=== PATIENT | male | born 1955 | race Hispanic/Latino ===

== ENCOUNTER → 2017-08-09 | Outpatient (CLI) | payer OTHER | END | disposition home or self-care (01) | LOC: SHCH 11:05 | PROVIDERS: ATTEND Internal Medicine Cardiovascular Disease | DX: I10 Essential (primary) hypertension (principal); R06.02 Shortness of breath; R07.9 Chest pain, unspecified | CPT/HCPCS: 93306 ==

== ENCOUNTER → 2017-08-30 | Outpatient (CLI) | payer OTHER | END | disposition home or self-care (01) | LOC: SHCH 13:59 | PROVIDERS: ATTEND Internal Medicine Cardiovascular Disease | DX: I87.2 Venous insufficiency (chronic) (peripheral) (principal); K21.9 Gastro-esophageal reflux disease without esophagitis | CPT/HCPCS: 93970 ==

== ENCOUNTER → 2017-10-21 | Outpatient (CLI) | payer OTHER | END | disposition home or self-care (01) | LOC: SHCH 12:54 | PROVIDERS: ATTEND Internal Medicine Cardiovascular Disease | DX: Z09 Encounter for follow-up examination after completed treatment for conditions other than malignant neoplasm (principal) | CPT/HCPCS: 93971 ==

== ENCOUNTER → 2018-11-21 | Outpatient (CLI) | payer OTHER | END | disposition home or self-care (01) | LOC: RAH 07:31 | PROVIDERS: ATTEND Family Medicine | DX: K76.0 Fatty (change of) liver, not elsewhere classified (principal); R16.0 Hepatomegaly, not elsewhere classified | CPT/HCPCS: 76700 ==

== ENCOUNTER → 2022-04-13 | Outpatient (CLI) | payer OTHER ==
[~2022-04-13] MED LIST: REGADENOSON 0.4 MG/5 ML PF SYG IVP SCH
== END | disposition home or self-care (01) ==
LOC: SHCH 07:39
PROVIDERS: ATTEND Internal Medicine Cardiovascular Disease
DX: I25.9 Chronic ischemic heart disease, unspecified (principal); R94.39 Abnormal result of other cardiovascular function study; R94.31 Abnormal electrocardiogram [ECG] [EKG]; R06.09 Other forms of dyspnea; R07.9 Chest pain, unspecified
CPT/HCPCS: 78452; 96374; 93017; J2785; A9500 ×2

== ENCOUNTER 2024-01-15 06:02 | Day surgery (SDC) | payer OTHER ==
[2024-01-13 09:05] VITALS: BP 159/78; PULSE 47; RESP 16; TEMP 97.2
[2024-01-13 09:20] LABS: BASOPHILS # (AUTO) 0.03 K/uL (0.00-0.20); BASOPHILS % (AUTO) 0.4 % (0.0-5.0); EOSINOPHILS # (AUTO) 0.16 K/uL (0.00-0.70); EOSINOPHILS % (AUTO) 2.1 % (0.0-8.0); HEMATOCRIT 38.3 % (42-54); IMMATURE GRANULOCYTE ABSOLUTE 0.02 K/uL (0-1); LYMPHOCYTES # (AUTO) 1.8 K/uL (1.0-4.8); LYMPHOCYTES % (AUTO) 22.9 % (21.0-51.0); MEAN CORPUSCULAR HEMOGLOBIN 27.4 pg (27.0-33.0); MEAN CORPUSCULAR HGB CONC 31.6 g/dL (32.0-36.0); MEAN CORPUSCULAR VOLUME 86.8 fL (79-99); MONOCYTES # (AUTO) 0.6 K/uL (0.1-1.0); MONOCYTES % (AUTO) 7.3 % (3.0-13.0); NEUTROPHILS # (AUTO) 5.2 K/uL (1.8-7.7); PLATELET COUNT (AUTO) 179 K/uL (130-400); RED BLOOD CELL COUNT(AUTO) 4.41 MIL/uL (4.50-6.20); RED CELL DISTRIBUTION WIDTH 15.9 % (11.0-15.5); WHITE BLOOD COUNT (AUTO) 7.7 K/uL (4.8-10.8)
[2024-01-13 09:31] LABS: CREATININE 1.1 mg/dL (0.5-1.3); POTASSIUM 4.5 mmol/L (3.5-5.1)
[2024-01-13 09:33] LABS: INR 0.99 (0.85-1.15); PROTHROMBIN TIME 10.7 SEC (9.6-11.6)
[2024-01-13 09:35] LABS: PARTIAL THROMBOPLASTIN TIME 31.2 SEC (26.3-35.5)
[2024-01-15] VITALS (12 sets, daily range): BP systolic 119–198; BP diastolic 46–89; PULSE 47–60; RESP 7–17; TEMP 97–97.8
[~2024-01-15] VITALS: Ht 162.6 cm; Wt 119.7 kg
[~2024-01-15 06:02] MED LIST changes: +ACET-2113 PO; +AEC81 PO; +ALPR1TAB7 PO; +AZEL205.2 NS; +CETI10TA57 PO; +CLOP75TA32 PO; +DICL50TA9 PO; +FE F1CAP33 PO; +FLOVENT INHALER PUFF; +FLUT16H NASAL; +GABA-1405 PO; +ISOS30TA92 PO; +LEVO75TA10 PO; +LOSA1TAB42 PO; +METO50TA18 PO; +MIRA50TA PO; +MONT-39 PO; +PANT40TA54 PO; +POTA-364 PO; -REGADENOSON 0.4 MG/5 ML PF SYG IVP SCH; +ROSU20TA73 PO
[2024-01-15] MEDS: 0.9%NACL 1000ML 1,000 ML IV ONE (06:35)
[2024-01-15] MEDS ORDERED: IOHEXOL 350 MG/ML 100ML INFUS..BTL IV ONE (07:16)
[2024-01-15] MEDS ORDERED: LIDOCAINE HCL 400MG/20ML VIAL ONE (07:16)
[2024-01-15] MEDS ORDERED: BIVALIRUDIN 250 MG/VIAL IV ONE (07:16)
[2024-01-15] MEDS ORDERED: NITROGLYCERIN 50MG VIAL ONE (07:17)
[2024-01-15] MEDS ORDERED: HEParin-NS 1,000 UNIT/500 ML 1,000 ML IV ONE (07:17)
[2024-01-15] MEDS ORDERED: HEParin 10,000 UNIT/10ML (1,000 UNIT/ML) VIAL ONE (07:17)
[2024-01-15] MEDS ORDERED: MIDAZOLAM HCL 1 MG/ML 2ML VIAL ONE (07:31)
[2024-01-15] MEDS ORDERED: FENTanyl CITRate PF 50 MCG/1 ML 2ML VIAL ONE (07:31)
[2024-01-15] MEDS ORDERED: ATROPINE 1MG SYG IVP ONE (07:50)
[2024-01-15] MEDS: 0.9%NACL 1000ML 1,000 ML IV SCH (08:30)
[2024-01-15] MEDS ORDERED: DEXTROSE 50%-WATER 50 ML DISP.SYRIN IV PRN (08:30)
[2024-01-15] MEDS ORDERED: GLUCAGON 1MG KIT 1 MG ML IM PRN (08:30)
[2024-01-15] MEDS ORDERED: NITROGLYCERIN 0.4 MG SL TAB SL PRN (08:30)
[2024-01-15] MEDS ORDERED: hydrALAZine 20MG/ML VIAL IV PRN (08:30)
[2024-01-15] MEDS ORDERED: INSULIN humuLIN R 100 UNIT/ML 3ML SQ SCH (11:30)
== END 2024-01-15 12:30 | disposition home or self-care (01) ==
LOC: DAH 06:02
PROVIDERS: ATTEND Internal Medicine Cardiovascular Disease
DX: I25.42 Coronary artery dissection (principal); I25.10 Atherosclerotic heart disease of native coronary artery without angina pectoris; K21.9 Gastro-esophageal reflux disease without esophagitis; E03.9 Hypothyroidism, unspecified; I11.9 Hypertensive heart disease without heart failure; E11.40 Type 2 diabetes mellitus with diabetic neuropathy, unspecified; I49.49 Other premature depolarization; R94.39 Abnormal result of other cardiovascular function study; E66.01 Morbid (severe) obesity due to excess calories; Z96.652 Presence of left artificial knee joint; Z82.49 Family history of ischemic heart disease and other diseases of the circulatory system; Z86.73 Personal history of transient ischemic attack (TIA), and cerebral infarction without residual deficits; Z68.41 Body mass index [BMI] 40.0-44.9, adult; Z79.82 Long term (current) use of aspirin; Z79.01 Long term (current) use of anticoagulants; Z79.899 Other long term (current) drug therapy
CPT/HCPCS: 80048; 85025; 85610; 85730; 36415; 71045; 93005; 93458; C1894 ×2; C1760; J3010; J3490 ×2; J7030; J2250; J1644; Q9967; A4215; A4222; A4221; A4663; A4216; A4606; Q9965; A4223 ×3; 99156; 99157; J0461; J0583

== ENCOUNTER → 2024-03-11 | Outpatient (CLI) | payer OTHER ==
[~2024-03-11] MED LIST changes: -ACET-2113 PO; +ACET-3305 PO; -ROSU20TA73 PO; +ROSU20TA98 PO
--- NOTE | 2024-03-11 12:34 | HMCIMG ---
CT LOW EXT W/O CONTRAST HISTORY: Left knee pain COMPARISON: None TECHNIQUE: Multiple sequential axial images of the left knee were obtained including post processing sagittal and coronal reconstruction images. Patient was not given contrast through intravenous route. FINDINGS: Total left knee replacement changes are seen causing artifacts limiting evaluation. This is a limited study. There is atherosclerosis. No acute displaced fracture or dislocation is seen. Evaluation for ligaments and tendons are limited. No appreciable amount of joint effusion is identified. IMPRESSION: 1. Total left knee replacement changes with artifacts limiting evaluation. Atherosclerosis. No acute displaced fracture or dislocation is seen. CT was performed with one or more following dose reduction techniques: automated exposure control, adjustment of the mA and kv according to patient's size, or use of a iterative reconstruction technique.
== END | disposition home or self-care (01) ==
LOC: RAH 09:01
PROVIDERS: ATTEND Orthopaedic Surgery
DX: M17.12 Unilateral primary osteoarthritis, left knee (principal); T84.093A Other mechanical complication of internal left knee prosthesis, initial encounter; Y84.8 Other medical procedures as the cause of abnormal reaction of the patient, or of later complication, without mention of misadventure at the time of the procedure; Y92.89 Other specified places as the place of occurrence of the external cause
CPT/HCPCS: 73700

== ENCOUNTER 2025-02-16 08:35 | Observation (INO) | payer OTHER ==
[2025-02-12 11:28] LABS: IMMATURE GRANULOCYTE ABSOLUTE 0.03 K/uL (0-1); NUCLEATED RED BLOOD CELLS 0.0 % (0.0-0.19); PLATELET COUNT (AUTO) 221 K/uL (130-400); RED BLOOD CELL COUNT(AUTO) 4.38 MIL/uL (4.50-6.20); RED CELL DISTRIBUTION WIDTH 16.1 % (11.0-15.5); WHITE BLOOD COUNT (AUTO) 8.0 K/uL (4.8-10.8)
[2025-02-12 11:32] LABS: APPEARANCE,URINE CLEAR (CLEAR); GLUCOSE, URINE (UA) NEGATIVE (NEGATIVE); LEUKOCYTE ESTERASE ,URINE NEGATIVE Leu/uL (NEGATIVE); NITRATE,URINE NEGATIVE (NEGATIVE); OCCULT BLOOD,URINE NEGATIVE (NEGATIVE)
[2025-02-12 11:36] LABS: ADD UA MICROSCOPIC NO
[2025-02-12 11:46] LABS: INR 1.05 (0.85-1.15)
[2025-02-12 11:49] VITALS: BP 167/79; PULSE 64; RESP 18; TEMP 98.1
[2025-02-12 11:50] LABS: CREATININE 0.7 mg/dL (0.5-1.3); GLOMERULAR FILTR. RATE CALC 99.0 mL/min (>90); GLUCOSE,RANDOM 113.0 mg/dL (70-105); SODIUM SERUM 137.0 mmol/L (136-145); UREA NITROGEN, BLOOD 10.0 mg/dL (7-18)
--- NOTE | 2025-02-12 11:50 | NUR ---
PREOP PT INSTRUCTED ON INCENTIVE SPIROMETRY BY DIANA LOYA AND JEANNE COLLINS
--- NOTE | 2025-02-12 14:44 | EKG ---
[facility] Test Date: 2025-02-12 Test Time: 11:13:16 Pat Name: DENNIS MCARTHUR Department: [facility] Room: Gender: M Sales Branch Manager: [id number] : 1955 Requested By: DENNIS RIGGINS Order Number: [id number] Reading MD: John Thompson Measurements Intervals [place] Rate: 57 P: 168 [place]: 193 QRS: 205 QRSD: 94 T: 182 QT: 436 QTc: 423 Interpretive Statements Sinus or ectopic atrial rhythm Right axis deviation Low voltage, precordial leads Probable anterolateral infarct, old Abnormal T, consider ischemia, diffuse leads Electronically Signed On 02-14-2025 16:05:22 CDT by John Thompson Please click the below link to view image of tracing.
--- NOTE | 2025-02-15 09:23 | NUR ---
report dr lacy notified of h&h. received orders to type and screen in am.
--- NOTE | 2025-02-15 12:34 | NUR ---
REPORT REPORTED EKG AND PREVIOUS EKG TO DR STUART. ALSO INFORMED PT HAS CARDIAC CLEARANCE. OK TO PROCEED
[~2025-02-16] VITALS: Ht 170.2 cm; Wt 127.0 kg
[2025-02-16] VITALS (22 sets, daily range): BP systolic 154–202; BP diastolic 65–98; PULSE 55–86; RESP 16–20; TEMP 97.3–98.3; O2SAT 96
[~2025-02-16 08:35] MED LIST changes: -ACET-3305 PO; -AZEL205.2 NS; -DICL50TA9 PO; -FE F1CAP33 PO; -FLOVENT INHALER PUFF; +FLUT15.845 NS; -FLUT16H NASAL; -GABA-1405 PO; +HC2530O TP; +HYDR-4060 PO; +PREG50CA64 PO; +TYLENOL ARTHRITIS PO
[2025-02-16] MEDS: LACTATED RINGERS 1000ML 1,000 ML IV ONE (09:07)
[2025-02-16] MEDS: SUGAMMADEX SODIUM 200 MG/2 ML VIAL IV ONE (13:45)
[2025-02-16] MEDS: FAMOTIDINE 20MG VIAL IV ONE (13:45)
[2025-02-16] MEDS ORDERED: LIDOCAINE PF 100MG/5ML (2%) SYRINGE 5ML ONE (13:47)
[2025-02-16] MEDS ORDERED: GLYCOPYRROLATE 0.2 MG/ML 5 ML VIAL ONE (13:48)
[2025-02-16] MEDS ORDERED: SUCCINYLCHOLINE CHLORIDE 20 MG/ML 10 ML VIAL ONE (13:48)
[2025-02-16] MEDS ORDERED: NEOSTIGMINE METHYLSULFATE 1MG/ML IV ONE (13:48)
[2025-02-16] MEDS ORDERED: MIDAZOLAM HCL 1 MG/ML 2ML VIAL ONE (13:49)
[2025-02-16] MEDS ORDERED: VANCOMYCIN 500MG+NS 100ML 100 ML IV ONE (14:22)
[2025-02-16] MEDS: VANCOMYCIN 500MG VIAL IJ ONE (15:18)
--- NOTE | 2025-02-16 17:47 | OP ---
Operative Note: DATE OF PROCEDURE: 02/16/25 SURGEON: DENNIS RIGGINS MD REHAB DIRECTOR: [Alice Hawthorne CFA] ANESTHESIA: [General anesthesia plus regional block] ANESTHESIOLOGIST/BIOINFORMATICS SUPPORT SPECIALIST: [Gonzalo Muñoz CRNA] PREOPERATIVE DIAGNOSIS: [Right knee osteoarthritis] POSTOPERATIVE DIAGNOSIS: [Right knee osteoarthritis] IMPLANTS: [Biomet vanguard. Femur size 70 right PS. Tibia size 79 fixed cruciate. Tibial liner size14 x 79/83 PS. Asymmetric patella size 37 x 10] PROCEDURE: [Right total knee arthroplasty] ESTIMATED BLOOD LOSS: [100 mL] INDICATIONS: [The patient is a 69-year-old male with a history of severe arthrosis of the right knee secondary to osteoarthritis. The patient has a severe varus alignment and significant medial bone loss. Patient is brought to the operating room for a total knee arthroplasty, procedure that he understood, risks, benefits and possible complications and agreed to sign the consent form] DESCRIPTION OF PROCEDURE: [After adequate general anesthesia was achieved and regional block obtained the right lower extremity was prepped and draped in the usual manner previous placement of the tourniquet in the proximal thigh. The extremity was then elevated and exsanguinated with an Esmarch bandage and the tourniquet inflated to 250 mmHg the Esmarch band been then removed. With the knee in flexion a longitudinal incision was then made in the anterior aspect through the skin followed by dissection of the subcutaneous tissue. A bone infusion needle was then inserted just medial to the tibial tuberosity and through this needle we injected into the bone a solution of normal saline 50 mL mixed with 500 mg of vancomycin. The needle was removed. A paramedian approach was then made with the Bovie cautery cutting through the quadriceps tendon, medial patellar retinaculum and patellar tendon retinaculum. The retropatellar tendon fat was then excised and the soft tissue elements of the tibia were elevated subperiosteally and retractors were applied medially and laterally . The anterior and posterior cruciate ligaments were resected. With the use of a drill a starting hole was made in the distal femur entering the intramedullary canal and then after removal of the drill an intramedullary guide was inserted with a 5 degree valgus block that touched the distal femur and to this the distal femoral cutting guide was then applied anteriorly and was secured to the distal femur with the use of pins. The intramedullary guide was then removed and with the use of the oscillating saw we proceeded to resect the distal femur removing the fragments and the guide. The femoral sizer was then applied distally and drill holes were made removing the sizer and the 4-in-1 cutting block was then inserted and the anterior, posterior and chamfer cuts were made removing the fragments and the block. The PS cutting guide was then inserted and the intercondylar cut was made removing the fragment and the guide. The posterior cruciate ligament retractor was then inserted posterior to the tibia and this was brought forward proceeding then to apply the external tibial alignment guide and secured the proximal cutting guide to the tibia with the use of pins. With the use of the oscillating saw the proximal cut to the tibia tibia was made. The bone fragment was removed and the trial tibia plate was chosen. At this point the menisci were removed sharply and with the use of the curved osteotome the posterior osteophytes of the femur were removed. The trial components were then inserted at the femur and tibia with a trial tibial liner bringing the knee into extension noticing that the patient had a very stable knee in flexion, extension and with valgus and varus stress. The knee was maintained in extension and the patella was then addressed proceeding to measure its thickness and then with the use of the oscillating saw we removed eight mm from the articular surface and restored the height with application of a trial component after 3 peg holes were made. The patellofemoral ligament was removed and then the patellofemoral tracking was checked noticing to be normal. At this moment all the components were removed, the tibia after the metaphyseal defect was created and while cement was being mixed on the back table we proceeded to irrigate the joint with antibiotic solution and then cover the entry to the femoral canal with a bone plug. Once the cement was ready we proceeded to apply it first to the tibia surface inserting the final component and then to the femoral surface and inserted the final component removing the excess cement and then applying a trial liner bringing the knee into extension for compression. Then we proceeded to irrigate the patella surface and dried it applying then bone cement and the final patellar component was inserted and was secured with application of a clamp. The joint was irrigated with a warm diluted Betadine solution while the cement dried followed by irrigation with antibiotic solution. The trial liner was removed as well as the patellar clamp and we proceeded then to irrigate the posterior aspect of the joint to remove all the remaining debris and the final tibial liner was inserted and locked against the tibia. The range of motion was checked and noticed to be adequate with full extension and flexion, no laxity in valgus or varus stress and with adequate patellofemoral tracking. The patient had no anterior or posterior drawer. The tourniquet was then deflated and this was followed by hemostasis and the wound was then closed with approximation of the quadriceps tendon, patellar retinaculum and patellar tendon retinaculum with #1 Vicryl close stitches alternating with #1 Ethibond stitches, and closure of the subcutaneous tissue with 2-0 Monocryl inverted stitches and the skin was closed with 3-0 Monocryl subcuticularly. The wound was covered with a suction dressing followed by application of an Leobardo bandage for compression and the drapes were then removed transferring the patient to the hospital bed and taken to recovery room for follow-up by anesthesia. There were no complications during the procedure.] DENNIS RIGGINS MD Feb 16, 2025 17:47
[2025-02-16] MEDS ORDERED: FERROUS FUMARATE 324 MG TABLET PO PRN (18:00)
[2025-02-16] MEDS ORDERED: PoTASSium chloRIDE 20MEQ ER 20 MEQ ERTAB PO PRN (18:00)
[2025-02-16] MEDS ORDERED: PoTASSium chl 10% ELIXIR 20MEQ 20 MEQ/15 ML UDCUP PO PRN (18:00)
[2025-02-16] MEDS: 0.9%NACL 1000ML 1,000 ML IV SCH (18:00)
[2025-02-16] MEDS ORDERED: CALCIUM CARB 500MG PO PRN (18:00)
[2025-02-16] MEDS: FAMOTIDINE 20MG TAB PO SCH (20:02)
[2025-02-17] VITALS (7 sets, daily range): BP systolic 137–172; BP diastolic 48–82; PULSE 65–92; RESP 12–20; TEMP 97.9–98.8; O2SAT 95–96
[2025-02-17 03:51] LABS: NUCLEATED RED BLOOD CELLS 0.0 % (0.0-0.19); PLATELET COUNT (AUTO) 188.0 K/uL (130-400); RED BLOOD CELL COUNT(AUTO) 3.44 MIL/uL (4.50-6.20); RED CELL DISTRIBUTION WIDTH 16.6 % (11.0-15.5); WHITE BLOOD COUNT (AUTO) 12.8 K/uL (4.8-10.8)
[2025-02-17 04:10] LABS: CREATININE 0.8 mg/dL (0.5-1.3); GLOMERULAR FILTR. RATE CALC 95.0 mL/min (>90); GLUCOSE,RANDOM 149.0 mg/dL (70-105); SODIUM SERUM 137.0 mmol/L (136-145); UREA NITROGEN, BLOOD 10.0 mg/dL (7-18)
[2025-02-17] MEDS: ISOSORBIDE MONO 30MG SR TAB PO SCH (08:18)
[2025-02-17] MEDS: ASPIRIN 81 MG EC TAB PO SCH (08:18)
[2025-02-17] MEDS ORDERED: NON-FORMULARY MEDICATION 1 EACH (Potassium Chloride 20 MEQ) PO SCH (09:00)
--- NOTE | 2025-02-17 10:29 | NUR ---
PT eval completed. Up to chair x 2 people. 3-4 steps at max assist. Needs BSC should not walk to RR yet. Pt was not up to chair in am. Up to chair with PT.
--- NOTE | 2025-02-17 11:45 | PN ---
Ortho postop day one. This morning patient is awake alert and oriented. Reporting acceptable pain control. He is seated comfortably in bed. The Leobardo bandage removed and the bear dressing is intact. Flashing green. SCD stockings on. Gastrocnemius soft nontender. Negative Homans. Vital signs have been stable. Afebrile. Laboratory results reviewed. Noted to have a drop in hemoglobin and hematocrit as expected after TKA. Patient is currently asymptomatic. We will continue to observe and address per protocol as necessary. Voiding on his own. Pending to pass gas. Operative findings discussed with the patient. Reinforced incentive spirometry. Encouraged to get out of bed during the day and reserve the bed for sleeping. Pending physical therapy this morning. Patient is anticipating discharge to SNF Assessment: status post right total knee arthroplasty. Acute postoperative blood loss anemia. Plan: Continue with Dr. Chacko TKA protocol and discharge planning. Acute postoperative blood loss anemia addressed with the protocol Vitals/Labs Vital Signs Date Time Temp Pulse Resp B/P (MAP) Pulse Ox O2 Delivery O2 Flow Rate FiO2 02/17/25 08:00 98.6 77 18 139/77 96 Room Air 02/17/25 08:00 0 21 Laboratory Tests 02/17/25 03:30 Medications Current Medications Cefazolin Sodium 1 gm STK-MED ONCE .ROUTE Last administered on 02/16/25at 14:57; Start 02/16/25 at 09:07; Stop 02/16/25 at 09:07; Status DC Cefazolin Sodium 2 gm STK-MED ONCE .ROUTE Last administered on 02/16/25at 14:57; Start 02/16/25 at 09:07; Stop 02/16/25 at 09:07; Status DC Lactated Ringer's 1,000 ml @ As Directed STK-MED ONCE IV; Start 02/16/25 at 09:07; Stop 02/16/25 at 09:07; Status DC Famotidine 20 mg STK-MED ONCE IV; Start 02/16/25 at 13:45; Stop 02/16/25 at 13:46; Status DC Acetaminophen 100 ml @ As Directed STK-MED ONCE .ROUTE; Start 02/16/25 at 13:46; Stop 02/16/25 at 13:46; Status DC Lidocaine HCl 100 mg STK-MED ONCE .ROUTE; Start 02/16/25 at 13:47; Stop 02/16/25 at 13:47; Status DC Ondansetron HCl 4 mg STK-MED ONCE .ROUTE; Start 02/16/25 at 13:47; Stop 02/16/25 at 13:47; Status DC Dexamethasone Sodium Phosphate 10 mg STK-MED ONCE .ROUTE; Start 02/16/25 at 13:47; Stop 02/16/25 at 13:47; Status DC Succinylcholine Chloride 200 mg STK-MED ONCE .ROUTE; Start 02/16/25 at 13:48; Stop 02/16/25 at 13:48; Status DC Glycopyrrolate 1 mg STK-MED ONCE .ROUTE; Start 02/16/25 at 13:48; Stop 02/16/25 at 13:48; Status DC Propofol 200 mg STK-MED ONCE IV; Start 02/16/25 at 13:48; Stop 02/16/25 at 13:48; Status DC Neostigmine Methylsulfate 10 mg STK-MED ONCE IV; Start 02/16/25 at 13:48; Stop 02/16/25 at 13:48; Status DC Rocuronium [place] 50 mg STK-MED ONCE .ROUTE; Start 02/16/25 at 13:48; Stop 02/16/25 at 13:48; Status DC Fentanyl Citrate 100 mcg STK-MED ONCE .ROUTE; Start 02/16/25 at 13:48; Stop 02/16/25 at 13:48; Status DC Midazolam HCl 2 mg STK-MED ONCE .ROUTE; Start 02/16/25 at 13:49; Stop 02/16/25 at 13:49; Status DC Ketamine HCl 50 mg STK-MED ONCE .ROUTE; Start 02/16/25 at 13:50; Stop 02/16/25 at 13:50; Status DC Ropivacaine 150 mg STK-MED ONCE .ROUTE; Start 02/16/25 at 13:50; Stop 02/16/25 at 13:51; Status DC Vancomycin HCl 100 ml @ As Directed STK-MED ONCE IV; Start 02/16/25 at 14:22; Stop 02/16/25 at 14:22; Status DC Cefazolin Sodium 1 gm STK-MED ONCE .ROUTE; Start 02/16/25 at 14:28; Stop 02/16/25 at 14:28; Status DC Propofol 200 mg STK-MED ONCE IV; Start 02/16/25 at 14:40; Stop 02/16/25 at 14:40; Status DC Fentanyl Citrate 100 mcg STK-MED ONCE .ROUTE; Start 02/16/25 at 15:04; Stop 02/16/25 at 15:04; Status DC Vancomycin HCl 500 mg STK-MED ONCE IJ Last administered on 02/16/25at 15:18; Start 02/16/25 at 15:18; Stop 02/16/25 at 15:45; Status DC Cefazolin Sodium 3 gm STK-MED ONCE IRRIG Last administered on 02/16/25at 15:33; Start 02/16/25 at 15:33; Stop 02/16/25 at 15:45; Status DC Fentanyl Citrate 100 mcg STK-MED ONCE .ROUTE; Start 02/16/25 at 16:00; Stop 02/16/25 at 16:00; Status DC Acetaminophen 100 ml @ As Directed STK-MED ONCE .ROUTE; Start 02/16/25 at 16:31; Stop 02/16/25 at 16:31; Status DC Hydralazine HCl 20 mg STK-MED ONCE .ROUTE; Start 02/16/25 at 16:40; Stop 02/16/25 at 16:40; Status DC Sodium Chloride 1,000 ml @ 100 mls/hr Q10H IV; Start 02/16/25 at 18:00; Stop 02/17/25 at 17:59 Polyethylene Glycol 17 gm DAILY PO Last administered on 02/17/25at 08:17; Start 02/17/25 at 09:00; Stop 03/19/25 at 08:59 Bisacodyl 10 mg DAILY PRN RC; Start 02/19/25 at 18:00; Stop 03/21/25 at 17:59 Ketorolac Tromethamine 15 mg Q6H PRN IV Last administered on 02/17/25at 10:27; Start 02/16/25 at 18:00; Stop 02/21/25 at 17:59 Famotidine 20 mg BID PO Last administered on 02/17/25at 08:18; Start 02/16/25 at 21:00; Stop 03/18/25 at 20:59 Tamsulosin HCl 0.4 mg DAILY PO Last administered on 02/17/25at 08:18; Start 02/17/25 at 09:00; Stop 03/19/25 at 08:59 Ferrous Fumarate 324 mg DAILY PRN PO; Start 02/16/25 at 18:00; Stop 03/18/25 at 17:59 Temazepam 15 mg HS PRN PO; Start 02/16/25 at 18:00; Stop 03/18/25 at 17:59 Ondansetron HCl 4 mg Q6H PRN IVP; Start 02/16/25 at 18:00; Stop 03/18/25 at 17:59 Calcium Carbonate 500 mg Q12H PRN PO; Start 02/16/25 at 18:00; Stop 03/18/25 at 17:59 Diphenhydramine HCl 25 mg Q6H PRN IVP; Start 02/16/25 at 18:00; Stop 03/18/25 at 17:59 Cefazolin Sodium 2 gm Q8H IVP Last administered on 02/17/25at 05:55; Start 02/16/25 at 23:00; Stop 02/17/25 at 07:01; Status DC Potassium Chloride 100 ml @ 100 mls/hr AD PRN IV; Start 02/16/25 at 18:00; Stop 03/18/25 at 17:59 Potassium Chloride 20 meq AD PRN PO; Start 02/16/25 at 18:00; Stop 03/18/25 at 17:59 Potassium Chloride 20 meq AD PRN PO; Start 02/16/25 at 18:00; Stop 03/18/25 at 17:59 Oxycodone HCl 5 mg Q4H PRN PO; Start 02/16/25 at 18:00; Stop 02/23/25 at 17:59 Oxycodone HCl 10 mg Q4H PRN PO Last administered on 02/17/25at 08:19; Start 02/16/25 at 18:00; Stop 02/23/25 at 17:59 Tramadol HCl 50 mg Q6H PRN PO; Start 02/16/25 at 18:00; Stop 02/21/25 at 17:59 Acetaminophen 1,000 mg Q8H PO Last administered on 02/17/25at 10:27; Start 02/16/25 at 18:00; Stop 03/18/25 at 17:59 Fentanyl Citrate 100 mcg STK-MED ONCE .ROUTE; Start 02/16/25 at 17:57; Stop 02/16/25 at 17:57; Status DC Fentanyl Citrate 100 mcg STK-MED ONCE .ROUTE Last administered on 02/16/25at 18:18; Start 02/16/25 at 18:14; Stop 02/16/25 at 18:14; Status DC Hydralazine HCl 20 mg STK-MED ONCE .ROUTE Last administered on 02/16/25at 19:41; Start 02/16/25 at 18:24; Stop 02/16/25 at 18:24; Status DC Alprazolam 1 mg [id number] PRN PO Last administered on 02/17/25at 02:20; Start 02/16/25 at 23:30; Stop 02/23/25 at 23:29 Metoprolol Tartrate 50 mg BID PO Last administered on 02/17/25at 08:19; Start 02/17/25 at 09:00; Stop 03/19/25 at 08:59 Pantoprazole Sodium 40 mg DAILY PO Last administered on 02/17/25at 08:18; Start 02/17/25 at 09:00; Stop 03/19/25 at 08:59 Cetirizine HCl 10 mg PM PO; Start 02/17/25 at 21:00; Stop 03/19/25 at 20:59 Fluticasone Propionate 1 SPRAY BID EN Last administered on 02/17/25at 08:23; Start 02/17/25 at 09:00; Stop 03/19/25 at 08:59 Hydrocortisone 1 APPLICATION AD TP; Start 02/16/25 at 23:45; Stop 03/18/25 at 23:44 Atorvastatin Calcium 40 mg HS PO; Start 02/17/25 at 21:00; Stop 03/19/25 at 20:59 Metoprolol Tartrate 50 mg STK-MED ONCE .ROUTE Last administered on 02/16/25at 23:34; Start 02/16/25 at 23:31; Stop 02/16/25 at 23:32; Status DC Aspirin 81 mg DAILY PO Last administered on 02/17/25at 08:18; Start 02/17/25 at 09:00; Stop 03/19/25 at 08:59 Clopidogrel Bisulfate 75 mg DAILY PO Last administered on 02/17/25at 08:18; Start 02/17/25 at 09:00; Stop 03/19/25 at 08:59 Isosorbide Mononitrate 30 mg DAILY PO Last administered on 02/17/25at 08:18; Start 02/17/25 at 09:00; Stop 03/19/25 at 08:59 Levothyroxine Sodium 75 mcg ACBKFST PO Last administered on 02/17/25at 08:18; Start 02/17/25 at 07:30; Stop 03/19/25 at 07:29 Montelukast Sodium 10 mg HS PO; Start 02/17/25 at 21:00; Stop 03/19/25 at 20:59 Miscellaneous Medication 20 meq DAILY PO; Start 02/17/25 at 09:00; Stop 02/17/25 at 01:25; Status DC Pregabalin 50 mg TID PO Last administered on 02/17/25at 08:18; Start 02/17/25 at 09:00; Stop 03/19/25 at 08:59 [facility] Feb 17, 2025 11:45
--- NOTE | 2025-02-17 12:50 | NUR ---
LATE ENTRY, ORTHO COORDINATOR: TEACHING REGARDING DVT AND PNEUMONIA PREVENTION, PAIN EXPECTATIONS AND PAIN MANAGEMENT. PATIENT IN BED, AT BEDSIDE. VIVIENNE SYSTEM INTACT, LIGHT FLASHING GREEN. B SCD SLEEVES IN PLACE AND FUNCTIONING. INCENTIVE SPIROMETER AT BEDSIDE. PATIENT RETURN DEMONSTRATED PROPER USE ON INCENTIVE SPIROMETER AND VERBALIZED PROPER FREQUENCY OF USE. PATIENT RETURN DEMONSTRATED PROPER FOOT FLEXION AND EXTENSION EXERCISES, RATIONALE PROVIDED. PAIN EXPECTATIONS REALISTIC PATIENT HAD SURGICAL PROCEDURE WITH DR RIGGINS IN SEPTEMBER OF 2024. DISCUSSED PAIN MANAGEMENT STRATEGY. PATIENT REQUESTED CHANGE IN PAIN MEDICATION HAS DISCUSSED WITH PRIMARY NURSE, AWAITING ORDERS. PATIENT DID NOT DISCUSS WITH MENDING CARRIER DURING MORNING VISIT. REMINDED PATIENT PAIN MEDICATION MUST BE REQUESTED, REVIEWED NUMERIC PAIN SCALE. SET EXPECTATION FOR PATIENT TO SHOWER IN TODAY, RATIONALE PROVIDED. PATIENT INTENDS TO DISCHARGE TO REHAB WITH LAST SURGERY. NO ADDITIONAL QUESTIONS OR CONCERNS AT THIS TIME. ICE PACK APPLIED TO SURGICAL SITE.
--- NOTE | 2025-02-17 13:41 | NUR ---
DC PLAN VISITED WITH PATIENT. PATIENT LIVES WITH SPOUSE. INDEPENDENT ABLE TO PERFORM ADL'S. PATIENT HAS A WALKER, WHEEL CHAIR, CANE. ALICIA FOR PRINCESS. PACKET MADE AND SENT. REP NOTIFIED. JOSIE DONE Addendum: 02/17/25 at 1342 by ADRIAN ALFARO RN CM Amended: Links added.
[2025-02-17] MEDS ORDERED: HYDROcodone/APAP 5/325 1 TAB TABLET PO PRN (15:30)
[2025-02-17] MEDS: HYDROcodone/APAP 5/325 1 TAB TABLET PO PRN (16:09)
[2025-02-18] VITALS (7 sets, daily range): BP systolic 139–162; BP diastolic 62–81; PULSE 66–87; RESP 18–20; TEMP 97.8–98.3; O2SAT 95–100
--- NOTE | 2025-02-18 15:11 | PN ---
Postop day 2., status post right total knee arthroplasty. The vital signs has been stable. He is afebrile. Patient has a significant amount of pain and discomfort yesterday that is barely being controlled today. The patient was able to ambulate just a few steps this morning and he is awaiting for physical therapy this afternoon. He is awake, alert and oriented. His respiratory effort is normal and he is in no distress. He is sitting in a chair. His dressing is intact. Distal neurovascular exam is normal with mild edema. Assessment: Status post right total knee arthroplasty. Plan: Awaiting for final placement may be this afternoon or tomorrow so the patient can go to a nursing facility. Because of the pain that has had a we will hold the discharge until tomorrow morning if approved. Continue with physical therapy and rehabilitation Vitals/Labs Vital Signs Date Time Temp Pulse Resp B/P (MAP) Pulse Ox O2 Delivery O2 Flow Rate FiO2 02/18/25 12:00 97.9 69 18 139/62 97 Room Air 02/18/25 08:00 0 21 Medications Current Medications Cefazolin Sodium 1 gm STK-MED ONCE .ROUTE Last administered on 02/16/25at 14:57; Start 02/16/25 at 09:07; Stop 02/16/25 at 09:07; Status DC Cefazolin Sodium 2 gm STK-MED ONCE .ROUTE Last administered on 02/16/25at 14:57; Start 02/16/25 at 09:07; Stop 02/16/25 at 09:07; Status DC Lactated Ringer's 1,000 ml @ As Directed STK-MED ONCE IV; Start 02/16/25 at 09:07; Stop 02/16/25 at 09:07; Status DC Famotidine 20 mg STK-MED ONCE IV; Start 02/16/25 at 13:45; Stop 02/16/25 at 13:46; Status DC Acetaminophen 100 ml @ As Directed STK-MED ONCE .ROUTE; Start 02/16/25 at 13:46; Stop 02/16/25 at 13:46; Status DC Lidocaine HCl 100 mg STK-MED ONCE .ROUTE; Start 02/16/25 at 13:47; Stop 02/16/25 at 13:47; Status DC Ondansetron HCl 4 mg STK-MED ONCE .ROUTE; Start 02/16/25 at 13:47; Stop 02/16/25 at 13:47; Status DC Dexamethasone Sodium Phosphate 10 mg STK-MED ONCE .ROUTE; Start 02/16/25 at 13:47; Stop 02/16/25 at 13:47; Status DC Succinylcholine Chloride 200 mg STK-MED ONCE .ROUTE; Start 02/16/25 at 13:48; Stop 02/16/25 at 13:48; Status DC Glycopyrrolate 1 mg STK-MED ONCE .ROUTE; Start 02/16/25 at 13:48; Stop 02/16/25 at 13:48; Status DC Propofol 200 mg STK-MED ONCE IV; Start 02/16/25 at 13:48; Stop 02/16/25 at 13:48; Status DC Neostigmine Methylsulfate 10 mg STK-MED ONCE IV; Start 02/16/25 at 13:48; Stop 02/16/25 at 13:48; Status DC Rocuronium [place] 50 mg STK-MED ONCE .ROUTE; Start 02/16/25 at 13:48; Stop 02/16/25 at 13:48; Status DC Fentanyl Citrate 100 mcg STK-MED ONCE .ROUTE; Start 02/16/25 at 13:48; Stop 02/16/25 at 13:48; Status DC Midazolam HCl 2 mg STK-MED ONCE .ROUTE; Start 02/16/25 at 13:49; Stop 02/16/25 at 13:49; Status DC Ketamine HCl 50 mg STK-MED ONCE .ROUTE; Start 02/16/25 at 13:50; Stop 02/16/25 at 13:50; Status DC Ropivacaine 150 mg STK-MED ONCE .ROUTE; Start 02/16/25 at 13:50; Stop 02/16/25 at 13:51; Status DC Vancomycin HCl 100 ml @ As Directed STK-MED ONCE IV; Start 02/16/25 at 14:22; Stop 02/16/25 at 14:22; Status DC Cefazolin Sodium 1 gm STK-MED ONCE .ROUTE; Start 02/16/25 at 14:28; Stop 02/16/25 at 14:28; Status DC Propofol 200 mg STK-MED ONCE IV; Start 02/16/25 at 14:40; Stop 02/16/25 at 14:40; Status DC Fentanyl Citrate 100 mcg STK-MED ONCE .ROUTE; Start 02/16/25 at 15:04; Stop 02/16/25 at 15:04; Status DC Vancomycin HCl 500 mg STK-MED ONCE IJ Last administered on 02/16/25at 15:18; Start 02/16/25 at 15:18; Stop 02/16/25 at 15:45; Status DC Cefazolin Sodium 3 gm STK-MED ONCE IRRIG Last administered on 02/16/25at 15:33; Start 02/16/25 at 15:33; Stop 02/16/25 at 15:45; Status DC Fentanyl Citrate 100 mcg STK-MED ONCE .ROUTE; Start 02/16/25 at 16:00; Stop 02/16/25 at 16:00; Status DC Acetaminophen 100 ml @ As Directed STK-MED ONCE .ROUTE; Start 02/16/25 at 16:31; Stop 02/16/25 at 16:31; Status DC Hydralazine HCl 20 mg STK-MED ONCE .ROUTE; Start 02/16/25 at 16:40; Stop 02/16/25 at 16:40; Status DC Sodium Chloride 1,000 ml @ 100 mls/hr Q10H IV; Start 02/16/25 at 18:00; Stop 02/17/25 at 17:59; Status DC Polyethylene Glycol 17 gm DAILY PO Last administered on 02/18/25at 08:32; Start 02/17/25 at 09:00; Stop 03/19/25 at 08:59 Bisacodyl 10 mg DAILY PRN RC; Start 02/19/25 at 18:00; Stop 03/21/25 at 17:59 Ketorolac Tromethamine 15 mg Q6H PRN IV Last administered on 02/18/25at 12:30; Start 02/16/25 at 18:00; Stop 02/21/25 at 17:59 Famotidine 20 mg BID PO Last administered on 02/18/25at 08:31; Start 02/16/25 at 21:00; Stop 03/18/25 at 20:59 Tamsulosin HCl 0.4 mg DAILY PO Last administered on 02/18/25at 08:32; Start 02/17/25 at 09:00; Stop 03/19/25 at 08:59 Ferrous Fumarate 324 mg DAILY PRN PO; Start 02/16/25 at 18:00; Stop 03/18/25 at 17:59 Temazepam 15 mg HS PRN PO; Start 02/16/25 at 18:00; Stop 03/18/25 at 17:59 Ondansetron HCl 4 mg Q6H PRN IVP; Start 02/16/25 at 18:00; Stop 03/18/25 at 17:59 Calcium Carbonate 500 mg Q12H PRN PO; Start 02/16/25 at 18:00; Stop 03/18/25 at 17:59 Diphenhydramine HCl 25 mg Q6H PRN IVP; Start 02/16/25 at 18:00; Stop 03/18/25 at 17:59 Cefazolin Sodium 2 gm Q8H IVP Last administered on 02/17/25at 05:55; Start 02/16/25 at 23:00; Stop 02/17/25 at 07:01; Status DC Potassium Chloride 100 ml @ 100 mls/hr AD PRN IV; Start 02/16/25 at 18:00; Stop 03/18/25 at 17:59 Potassium Chloride 20 meq AD PRN PO; Start 02/16/25 at 18:00; Stop 03/18/25 at 17:59 Potassium Chloride 20 meq AD PRN PO; Start 02/16/25 at 18:00; Stop 03/18/25 at 17:59 Oxycodone HCl 5 mg Q4H PRN PO; Start 02/16/25 at 18:00; Stop 02/17/25 at 15:05; Status DC Oxycodone HCl 10 mg Q4H PRN PO Last administered on 02/17/25at 08:19; Start 02/16/25 at 18:00; Stop 02/17/25 at 15:05; Status DC Tramadol HCl 50 mg Q6H PRN PO; Start 02/16/25 at 18:00; Stop 02/21/25 at 17:59 Acetaminophen 1,000 mg Q8H PO Last administered on 02/18/25at 11:00; Start 02/16/25 at 18:00; Stop 03/18/25 at 17:59 Fentanyl Citrate 100 mcg STK-MED ONCE .ROUTE; Start 02/16/25 at 17:57; Stop 02/16/25 at 17:57; Status DC Fentanyl Citrate 100 mcg STK-MED ONCE .ROUTE Last administered on 02/16/25at 18:18; Start 02/16/25 at 18:14; Stop 02/16/25 at 18:14; Status DC Hydralazine HCl 20 mg STK-MED ONCE .ROUTE Last administered on 02/16/25at 19:41; Start 02/16/25 at 18:24; Stop 02/16/25 at 18:24; Status DC Alprazolam 1 mg [id number] PRN PO Last administered on 02/18/25at 10:10; Start 02/16/25 at 23:30; Stop 02/23/25 at 23:29 Metoprolol Tartrate 50 mg BID PO Last administered on 02/18/25 08:31; Start 02/17/25 at 09:00; Stop 03/19/25 at 08:59 Pantoprazole Sodium 40 mg DAILY PO Last administered on 02/18/25at 08:31; Start 02/17/25 at 09:00; Stop 03/19/25 at 08:59 Cetirizine HCl 10 mg PM PO Last administered on 02/17/25at 21:07; Start 02/17/25 at 21:00; Stop 03/19/25 at 20:59 Fluticasone Propionate 1 SPRAY BID EN Last administered on 02/18/25at 08:32; Start 02/17/25 at 09:00; Stop 03/19/25 at 08:59 Hydrocortisone 1 APPLICATION AD TP; Start 02/16/25 at 23:45; Stop 02/17/25 at 15:06; Status DC Atorvastatin Calcium 40 mg HS PO Last administered on 02/17/25at 21:07; Start 02/17/25 at 21:00; Stop 03/19/25 at 20:59 Metoprolol Tartrate 50 mg STK-MED ONCE .ROUTE Last administered on 02/16/25at 23:34; Start 02/16/25 at 23:31; Stop 02/16/25 at 23:32; Status DC Aspirin 81 mg DAILY PO Last administered on 02/18/25at 08:31; Start 02/17/25 at 09:00; Stop 03/19/25 at 08:59 Clopidogrel Bisulfate 75 mg DAILY PO Last administered on 02/18/25at 08:31; Start 02/17/25 at 09:00; Stop 03/19/25 at 08:59 Isosorbide Mononitrate 30 mg DAILY PO Last administered on 02/18/25at 08:32; Start 02/17/25 at 09:00; Stop 03/19/25 at 08:59 Levothyroxine Sodium 75 mcg ACBKFST PO Last administered on 02/17/25at 08:18; Start 02/17/25 at 07:30; Stop 02/17/25 at 15:08; Status DC Montelukast Sodium 10 mg HS PO Last administered on 02/17/25at 21:07; Start 02/17/25 at 21:00; Stop 03/19/25 at 20:59 Miscellaneous Medication 20 meq DAILY PO; Start 02/17/25 at 09:00; Stop 02/17/25 at 01:25; Status DC Pregabalin 50 mg TID PO Last administered on 02/18/25at 08:29; Start 02/17/25 at 09:00; Stop 03/19/25 at 08:59 Acetaminophen/ Hydrocodone Bitart 2 tab Q4H PRN PO Last administered on 02/18/25at 08:31; Start 02/17/25 at 15:00; Stop 02/22/25 at 14:59 Acetaminophen/ Hydrocodone Bitart 1 tab Q4H PRN PO; Start 02/17/25 at 15:30; Stop 02/22/25 at 15:29 Hydrocortisone 1 APPLICATION DAILY TP; Start 02/18/25 at 09:00; Stop 03/18/25 at 23:44 Levothyroxine Sodium 75 mcg SYN PO Last administered on 02/18/25at 05:43; Start 02/18/25 at 06:30; Stop 03/19/25 at 07:29 DENNIS RIGGINS MD Feb 18, 2025 15:11
--- NOTE | 2025-02-18 15:20 | NUR ---
ORTHO COORDINATOR: REINFORCED TEACHING PATIENT IN BED, SPOUSE AT BEDSIDE. PAIN MEDICATION HAS BEEN ADJUSTED, PROVIDING MORE RELIEF. B SCD SLEEVES IN PLACE AND FUNCTIONING. VIVIENNE SYSTEM INTACT, LIGHT FLASHING GREEN. DRESSING SMALL AMOUNT OF DARK BROWN BLOOD TO BOTTOM 1/3 OF DRESSING. VIVIENNE DRESSING CARE AND REMOVAL DATE OF THE PROVIDED. PATIENT DID NOT GET UP TO SHOWER, SET EXPECTATIONS. ENCOURAGED PATIENT TO CONTINUE USE OF INCENTIVE SPIROMETER, FOOT FLEXION AND EXTENSION EXERCISES, PREMEDICATING PRIOR TO PHYSICAL THERAPY AND PERIODS OF ACTIVITY, TO INCREASE AMBULATION AND HYDRATE. PATIENT AND SPOUSE VERBALIZED UNDERSTANDING TO INSTRUCTIONS. PATIENT REPORTS PASSING GAS, NO BOWEL MOVEMENT. REFILLED ICE PACKS, PLACED TO SURGICAL SITE AND LOWER EXTREMITY.
[2025-02-19] VITALS: BP 143/71; PULSE 72; RESP 18; TEMP 98.3
[2025-02-19 04:00] VITALS: BP 159/89; PULSE 72; RESP 18; TEMP 98.3
[2025-02-19 07:11] VITALS: BP 193/91; PULSE 72; RESP 16; TEMP 97.8
[2025-02-19 08:00] VITALS: O2SAT 95
--- NOTE | 2025-02-19 08:09 | DS ---
DISCHARGE SUMMARY [ Date of Admission: 02/16/25 Date of Discharge: 02/19/25. Final diagnosis: Right Knee osteoarthritis Surgical procedures: Right total Knee arthroplasty on 02/16/25 Summary of History and Physical: The patient is a69 year-old male with history of severe arthrosis to the right knee that has been present for several years and has been treated conservatively with no longer adequate response to treatment. The patient is being admitted for total knee arthroplasty. Previous medical history: Hypercholesterolemia, chronic pain, Coronary artery disease, HTN, BPH, GERD, Chronic anticoagulation Previous surgical history: Hip arthroplasty, knee arthroplasty. Family history: Heart disease, HTN, DM, carcinoma Social history: Negative for use of tobacco , positive for use of alcohol. Allergies: NKDA. Review of system: Negative on admission Hospital course: The patient was admitted and taken to the operating room for a total knee arthroplasty, procedure that went uneventful. Postoperatively the patient remained hemodynamically stable and afebrile. The patient received antibiotic and anticoagulation prophylaxis as per protocol. The patient was evaluated by physical therapy and started rehabilitation treatment with ambulation with the use of walker, weightbearing as tolerated, range of motion exercises and bed transfers. The patient was also evaluated by case management and arrangements were made for discharge to a [place] facility. The patient tolerated diet well. On postop day # 3 all the arrangements were completed, and the patient was dismissed. Condition on discharge: Good Disposition: The patient will be dismissed to a [place] facility. Follow-up will be done at the office in 3 weeks. The patient is to continue with physical therapy and rehabilitation at [place] and be ambulatory with the use of a walker, weightbearing as tolerated. Continue taking pain medication as instructed as well as anticoagulation. Continue with home medications also as instructed and continue with pre admission diet.] ] DENNIS RIGGINS MD Feb 19, 2025 08:09
[2025-02-19] MEDS ORDERED: HYDR-4060 PO ×2 (08:18→08:29)
--- NOTE | 2025-02-19 11:02 | NUR ---
CONTACTED [facility] AND REPORT GIVEN TO AJ ARMANDO. ALL QUESTIONS AND CONCERNS ANSWERED. REQUESTED TRANSPORTATION VIA [facility].
--- NOTE | 2025-02-19 11:37 | NUR ---
PATIENT DISCHARGED. IV REMOVED INTACT. EDUCATED ON NEXT APPOINTMENT DATE WITH DR RIGGINS AND WOUND CARE, PATIENT VERBALIZED UNDERSTANDING. ALL QUESTIONS AND CONCERNS ANSWERED. ALL BELONGINGS GATHERED BY PATIENT AND SPOUSE. PATIENT AWAITING TRANSPORT FROM [facility].
--- NOTE | 2025-02-19 14:29 | NUR ---
FACILITY TRANSP[facility] FOR [facility] ARRIVED TO TAKE PATIENT. ALL BELONGINGS TAKEN WITH PATIENT AND SPOUSE. ALL QUESTIONS AND CONCERNS ANSWERED. PATIENT LEFT ALERT AND ORIENTED X 4.
== END 2025-02-19 16:52 ==
LOC: DAH 08:35 → DAHIP 08:36 → DAH 08:36 → 4AH 19:30
PROVIDERS: ADMIT Orthopaedic Surgery; ATTEND Orthopaedic Surgery
DX: M17.11 Unilateral primary osteoarthritis, right knee (principal); I10 Essential (primary) hypertension; E78.00 Pure hypercholesterolemia, unspecified; D62 Acute posthemorrhagic anemia; I25.10 Atherosclerotic heart disease of native coronary artery without angina pectoris; N40.0 Benign prostatic hyperplasia without lower urinary tract symptoms; K21.9 Gastro-esophageal reflux disease without esophagitis; M25.561 Pain in right knee; Z79.01 Long term (current) use of anticoagulants; Z79.899 Other long term (current) drug therapy; Z98.890 Other specified postprocedural states
CPT/HCPCS: 80048 ×2; 85025; 85610; 85730; 87086; 81003; 36415 ×3; 93005; 87641; 27447; 96374; 96375; 86850; 86900; 86901; 82948; 96376 ×3; 85027; 97161; 97116 ×5; 97530 ×9; G0378 ×71; A4663; A4600; J7120; J1308; J3010 ×5; J0690 ×6; J1100; J0330; J3490 ×3; J2003; J0360 ×2; J2250; J2704; J2405; J2710; J2795; J1885 ×5; J3373 ×2; A5120; A4215; A4223 ×2; A4213; A4222; A4221; A4216; 88304; 88311; C1776; A4649; A4930; A9272; C1713

== ENCOUNTER 2025-02-24 11:54 | Emergency (ER) | payer OTHER ==
[~2025-02-24] VITALS: Ht 167.6 cm; Wt 124.7 kg
[2025-02-24 12:16] LABS: IMMATURE GRANULOCYTE ABSOLUTE 0.11 K/uL (0-1); NUCLEATED RED BLOOD CELLS 0.3 % (0.0-0.19); PLATELET COUNT (AUTO) 308 K/uL (130-400); RED BLOOD CELL COUNT(AUTO) 3.23 MIL/uL (4.50-6.20); RED CELL DISTRIBUTION WIDTH 17.2 % (11.0-15.5); WHITE BLOOD COUNT (AUTO) 9.9 K/uL (4.8-10.8)
[2025-02-24 12:23] LABS: CREATININE 0.7 mg/dL (0.5-1.3); GLOMERULAR FILTR. RATE CALC 99.0 mL/min (>90); GLUCOSE,RANDOM 109.0 mg/dL (70-105); SODIUM SERUM 136.0 mmol/L (136-145); UREA NITROGEN, BLOOD 11.0 mg/dL (7-18)
--- NOTE | 2025-02-24 13:24 | HMCIMG ---
EXAM: US for Deep Venous Thrombosis, right Lower Extremity. CLINICAL HISTORY: Leg Pain and Swelling TECHNIQUE: Real-time ultrasound scan of the veins of the right lower extremity with color Doppler flow, spectral waveform analysis and compression. COMPARISON: None provided. FINDINGS: DEEP VEINS: The common femoral, superficial femoral, and popliteal veins are echolucent and compressible. There is normal color Doppler flow throughout. The visualized calf veins appear patent. Limited evaluation of the popliteal vein in the popliteal area due to significant edema and body habitus. SOFT TISSUES: No popliteal fossa cyst or other abnormalities. IMPRESSION: 1. No evidence of deep venous thrombosis in the visualized right lower extremity veins. /Ingrid
--- NOTE | 2025-02-24 14:40 | ERN ---
ED Note History of Present Illness Stated Complaint: BLOOD TRANSFUSSION Chief Complaint: Abnormal Labs Time Seen by MD: 11:55 Dictation: 69-year-old male with a history of UTI hypertension cholesterol GERD coming in from senior living for hemoglobin of 6.8. If patient had a knee surgery a couple of weeks ago. Denies having any dark stool or red stool. Denies any hemoptysis. Allergies: Coded Allergies: No Known Allergies (Verified Allergy, Unknown, 04/12/22) Home Meds Active Scripts Hydrocodone/Acetaminophen (Hydrocodon-Acetaminophen 5-325) 5 Mg-325 Mg Tablet, 1-2 TAB PO Q8H PRN for acutepost-op pain (G89.18) for 7 Days, #42 TAB 0 Refills Prov:DENNIS CHACKO MD 02/19/25 Hydrocodone/Acetaminophen (Hydrocodon-Acetaminophen 5-325) 5 Mg-325 Mg Tablet, 1-2 EACH PO Q8H for Acute post-op pain (G89.18), #42 TAB 0 Refills Prov:DENNIS CHACKO MD 09/06/24 Aspirin (ASPIRIN 81 MG ECTAB) 81 Mg Ectab, 81 MG PO DAILY for 30 Days, #60 TAB.EC Prov:DENNIS CHACKO MD 09/06/24 Reported Medications Hydrocortisone (Hydrocortisone 2.5% Oint) 2.5 % Oint, 1 APPL TP AD for PSORIASIS, APPL 02/12/25 Fluticasone Propionate (Fluticasone Propionate) 50 Mcg/Actuation [place].susp, 15.8 ML NS BID 02/12/25 Cetirizine HCl (Cetirizine HCl) 10 Mg Tablet, 10 MG PO PM, TAB 02/12/25 Pregabalin (Pregabalin) 50 Mg Capsule, 50 MG PO TID for PAIN , CAP 02/12/25 [Tylenol Arthritis] No Conflict Check, 2 TAB PO AD for PAIN 02/12/25 Alprazolam (Alprazolam) 1 Mg Tablet, 1 MG PO [id number] PRN for ANXIETY, TAB 01/13/24 Levothyroxine Sodium (Levothyroxine Sodium) 75 Mcg Tablet, 75 MCG PO ACBKFST, TAB 01/13/24 Clopidogrel Bisulfate (Clopidogrel) 75 Mg Tablet, 75 MG PO DAILY, TAB 01/13/24 Rosuvastatin Calcium (Rosuvastatin Calcium) 20 Mg Tablet, 20 MG PO HS, TAB 01/13/24 Montelukast Sodium (Montelukast Sodium) 10 Mg Tablet, 10 MG PO HS, TAB 01/13/24 Isosorbide Mononitrate (Isosorbide Mononitrate ER) 30 Mg Tab.er.24h, 30 MG PO DAILY, TAB 01/13/24 Mirabegron (Myrbetriq) 50 Mg Tab.er.24h, 50 MG PO HS, TAB 01/13/24 Potassium Chloride (Potassium Chloride) 20 Meq Tablet.er, 20 MEQ PO DAILY, TAB 01/13/24 Losartan/Hydrochlorothiazide (Losartan-Hctz 100-12.5 mg Tab) 100 Mg-12.5 Mg Tablet, 1 EACH PO HS, TAB 01/13/24 Metoprolol Tartrate (Metoprolol Tartrate) 50 Mg Tablet, 50 MG PO BID, TAB 01/13/24 Pantoprazole Sodium (Pantoprazole Sodium) 40 Mg Tablet.dr, 40 MG PO DAILY, TAB 01/13/24 Past Medical History Past Medical History: Anxiety, Arthritis, Diabetes-Type II, GERD, High Cholesterol, Hypertension, Hypothyroid Surgical History: Other Surgical History Other: LEFT KNEE SX Review of System Dictation Constitutional: Negative for fever,chills, and weight loss Eyes: Negative for injury, pain,redness, and discharge ENT: Negative for injury,pain or swelling Cardiovascular: Negative for chest pain, palpitations, and edema Respiratory: Negative for shortness of breath, cough, and wheezing, Abdomen/GI: Negative for abdominal pain, nausea, vomiting, diarrhea, and constipation Back: Negative for injury and pain : Negative for injury, bleeding and discharge MS/Extremity: Negative for injury and deformity Skin: Negative for rash, and discoloration Neuro: Negative for headache, weakness, numbness, tingling, and seizure Psych: Negative for suicide ideation, homicidal ideation, and hallucinations Review of Systems: was completed Initial Vital Sign VS Vital Signs Date Time Temp Pulse Resp B/P (MAP) Pulse Ox O2 Delivery O2 Flow Rate FiO2 02/24/25 12:22 68 18 124/66 98 Room Air 0 02/24/25 12:45 98.2 21 Physical Exam Dictation General: awake, alert, NAD Head/Face: Normocephalic, atraumatic Eyes: PERRL, EOMI, vision at baseline ENT: oral cavity clear, TMs clear, no signs of infection Neck: Trachea midline, supple, no nuchal rigidity Cardiovascular: RRR, normal S1/S2, No MRGs, no JVD Respiratory: CTAB, no respiratory distress, No rales or wheezes Abdomen: Soft, non-tender, non-distended, normal bowel sounds, no guarding or rebound. Skin: Warm, dry, normal turgor, no rash MS/Extremity: Pulses equal, no cyanosis, neurovascular intact, FROM, right lower extremity is swollen, ecchymosis, total knee replacement surgery incision intact no dehiscence, no signs of any infectious process. Pedal pulses assessed with Doppler and are intact. Neuro: COAx4, GCS 15, strength 5/5, CN 2-12 intact, normal cerebellar exam, normal gait, Psych: Normal behavior, mood, and affect normal Results (Laboratory/Radiology) Laboratory/Radiology Laboratory Tests Test 02/24/25 12:09 White Blood Count 9.9 K/uL (4.8-10.8) Red Blood Count 3.23 MIL/uL (4.50-6.20) L Hemoglobin 7.7 g/dL (14.0-18.0) L Hematocrit 25.2 % (42-54) L Mean Corpuscular Volume 78.0 fL (79-99) L Mean Corpuscular Hemoglobin 23.8 pg (27.0-33.0) L Mean Corpuscular Hemoglobin Concent 30.6 g/dL (32.0-36.0) L Red Cell Distribution Width 17.2 % (11.0-15.5) H Platelet Count 308 K/uL (130-400) Mean Platelet Volume 9.4 fL (7.5-10.5) Immature Granulocyte % (Auto) 1.1 % (0-1) H Neutrophils (%) (Auto) 64.4 % (40.0-77.0) Lymphocytes (%) (Auto) 17.8 % (21.0-51.0) L Monocytes (%) (Auto) 13.1 % (3.0-13.0) H Eosinophils (%) (Auto) 3.1 % (0.0-8.0) Basophils (%) (Auto) 0.5 % (0.0-5.0) Neutrophils # (Auto) 6.3 K/uL (1.8-7.7) Lymphocytes # (Auto) 1.8 K/uL (1.0-4.8) Monocytes # (Auto) 1.3 K/uL (0.1-1.0) H Eosinophils # (Auto) 0.31 K/uL (0.00-0.70) Basophils # (Auto) 0.05 K/uL (0.00-0.20) Absolute Immature Granulocyte (auto 0.11 K/uL (0-1) Nucleated Red Blood Cells 0.3 % (0.0-0.19) H Red Blood Cell Morphology See comments Sodium Level 136 mmol/L (136-145) Potassium Level 4.2 mmol/L (3.5-5.1) Chloride Level 99 mmol/L (101-111) L Carbon Dioxide Level 32 mmol/L (21-32) Blood Urea Nitrogen 11 mg/dL (7-18) Creatinine 0.7 mg/dL (0.5-1.3) Glomerular Filtration Rate Calc 99 mL/min (>90) Random Glucose 109 mg/dL (70-105) H Total Calcium 8.7 mg/dL (8.5-10.1) Labs Reviewed?: Yes Ultrasound Comment: [address] [address] [place] [address] IMAGING REPORT Signed PATIENT: DENNIS MCARTHUR MR#: [id number] : 1955 SEX: M AGE: 69 LOCATION: [facility] ORDER 120 STATUS: REG REPORT#: [id number] SERVICE 120 REASON: right swollen extremity recent knee sx ORDERING PHYSICIAN: JOSSELINE DOUGLAS CNP PROCEDURE: VENOUS UNI - US VENOUS DOPPLER UNILATERAL EXAM: US for Deep Venous Thrombosis, right Lower Extremity. CLINICAL HISTORY: Leg Pain and Swelling TECHNIQUE: Real-time ultrasound scan of the veins of the right lower extremity with color Doppler flow, spectral waveform analysis and compression. COMPARISON: None provided. FINDINGS: DEEP VEINS: The common femoral, superficial femoral, and popliteal veins are echolucent and compressible. There is normal color Doppler flow throughout. The visualized calf veins appear patent. Limited evaluation of the popliteal vein in the popliteal area due to significant edema and body habitus. SOFT TISSUES: No popliteal fossa cyst or other abnormalities. IMPRESSION: 1. No evidence of deep venous thrombosis in the visualized right lower extremity veins. /[place] DICTATED BY: ADAM TEMPLETON Jr., MD DATE: 02/24/251423 ELECTRONICALLY SIGNED BY: ADAM TEMPLETON Jr., MD DATE: 02/24/251423 ED Course ED Course Orders Procedure Category Date Status Time Cbc With Differential LAB 02/24/25 Complete 11:58 Basic Metabolic Panel LAB 02/24/25 Complete 11:58 Type And Screen BBK 02/24/25 Complete 11:58 Us Venous Doppler US 02/24/25 Resulted Unilateral 12:03 Vital Signs Date Time Temp Pulse Resp B/P (MAP) Pulse Ox O2 Delivery O2 Flow Rate FiO2 02/24/25 12:45 98.2 67 14 129/56 96 Room Air* 0 21 02/24/25 12:22 68 18 124/66 98 Room Air 0 Medical Decision Making MDM MDM: 69-year-old male with a history of UTI hypertension cholesterol GERD coming in from senior living for hemoglobin of 6.8. If patient had a knee surgery a couple of weeks ago. Denies having any dark stool or red stool. Denies any hemoptysis. CBC shows no leukocytosis, anemia, hemoglobin is 7.7 and hematocrit is 25. Normal platelet count. Chemistry unremarkable. Ultrasound of the right lower extremity shows no evidence of DVT. [address] Chacko, the Orthopedic who did the knee replacement, reviewed case and images, stated the ecchymosis and hematoma is something to be expected after a total knee replacement specialists the patient is taking a blood thinner. The patient is already to be discharged back to the senior living. Differential diagnosis: DVT, hematoma, anemia, lab error Rationale: Tests considered and ordered secondary to shared decision making include: Previous outside records reviewed: Old ER visits. Risk of complication and/or morbidity or mortality of patient management: None Medications-Per medication reconciliation Need for hospitalization: Patient does not meet criteria for hospitalization. Need for emergency major/minor surgery: No There are no social concerns with this patient. Prescription drug management Prescriptions will include symptomatic care Patient's prior external medical records from other ER visits were reviewed by me as indicated. Prior testing and results from previous visits were reviewed. Prior tests were taken into account with medical decision making and resource utilization, independent historian/historians were used to obtain complete medical history. I independently interpreted the test that were performed, results were reviewed by me and considered findings on radiology if ordered. Medical management and examination interpretation discussions were had by me with other qualified healthcare professionals as indicated for the patient's care. DX & DISP Disposition: Discharge Departure Impression: Primary Impression: Anemia Additional Impression: Hematoma of lower leg Condition: Stable Additional Instructions: Hemoglobin is 7.7. There is no evidence of DVT on the right lower extremity. More than likely this swelling is related to the hematoma since you are taking blood thinner. Referrals: AUTUMN IRVING MD (PCP) Time of Disposition: 14:39 I have reviewed the case, and I agree with, Diagnosis and Plan JOSSELINE DOUGLAS SLEEP SCIENTIST Feb 24, 2025 14:40
--- NOTE | 2025-02-24 15:19 | NUR ---
SPOKE [facility] TO SET UP TRANPORT FOR PT. FAXED OVER PAPERWORK.
[2025-02-24 17:12] VITALS: BP 124/57; PULSE 62; RESP 16; TEMP 98.2; O2SAT 97
--- NOTE | 2025-02-24 17:54 | NUR ---
[facility] BY TO [facility] ECOLOGIST PT.
== END 2025-02-24 17:51 | disposition home or self-care (01) ==
LOC: EDH 11:54
DX: S80.11XA Contusion of right lower leg, initial encounter (principal); D64.9 Anemia, unspecified; M79.604 Pain in right leg; E03.9 Hypothyroidism, unspecified; E11.9 Type 2 diabetes mellitus without complications; E78.00 Pure hypercholesterolemia, unspecified; F41.9 Anxiety disorder, unspecified; I10 Essential (primary) hypertension; M19.90 Unspecified osteoarthritis, unspecified site; Z79.02 Long term (current) use of antithrombotics/antiplatelets; Z79.82 Long term (current) use of aspirin; Z79.899 Other long term (current) drug therapy; X58.XXXA Exposure to other specified factors, initial encounter; Y93.89 Activity, other specified; Y92.89 Other specified places as the place of occurrence of the external cause; Y99.8 Other external cause status
CPT/HCPCS: 36415; 80048; 85025; 86850; 86900; 86901; 93971; 99284